=== PATIENT | male | born 1940 | race Caucasian/White ===

== ENCOUNTER 2017-01-12 10:19 | Emergency (ER) | payer MEDICARE, BC ==
[~2017-01-12] VITALS: Ht 182.9 cm; Wt 98.2 kg
[2017-01-12 10:22] VITALS: BP 152/82; PULSE 55; RESP 17; TEMP 97.6; O2SAT 99
[2017-01-12] MEDS ORDERED: DILT-60 PO (10:43)
[2017-01-12] MEDS ORDERED: GABA100C4 PO (10:43)
[2017-01-12] MEDS ORDERED: ALLO300T2 PO (10:43)
[2017-01-12] MEDS ORDERED: CLON0.3T PO (10:43)
[2017-01-12] MEDS ORDERED: PRAV80TA2 PO (10:43)
[2017-01-12] MEDS ORDERED: POTA4.25 PO (10:43)
[2017-01-12] MEDS ORDERED: TORS5TAB2 PO (10:43)
[2017-01-12] MEDS ORDERED: DOXA1TAB34 PO (10:43)
[2017-01-12] MEDS ORDERED: QUIN40TA2 PO (10:43)
[2017-01-12] MEDS ORDERED: METF500T PO (10:43)
[2017-01-12 10:51] VITALS: O2SAT 98
[2017-01-12] MEDS ORDERED: SODIUM CHLORIDE 0.9% FLUSH 10 ML FLUSH IVF PRN (11:00)
[2017-01-12 11:04] LABS: AUTOMATED NEUTROPHIL # 4.2 TH/MM3 (1.8-7.7); BASOPHIL % 0.5 % (0.0-2.0); EOSINOPHIL # 0.2 TH/MM3 (0-0.4); EOSINOPHIL % 3.3 % (0.0-4.0); HEMO FLAGS DIFF FINAL; LYMPH % 21.8 % (9.0-44.0); LYMPHOCYTE # 1.3 TH/MM3 (1.0-4.8); MEAN CELL VOLUME 88.6 FL (80.0-100.0); MEAN CORPUSCULAR HEMOGLOBIN 29.5 PG (27.0-34.0); MEAN CORPUSCULAR HGB CONC 33.3 % (32.0-36.0); NEUT % 70.4 % (16.0-70.0); PLATELET COUNT 174 TH/MM3 (150-450); RED BLOOD COUNT 4.97 MIL/MM3 (4.50-5.90); RED CELL DISTRIBUTION WIDTH 14.3 % (11.6-17.2); WHITE BLOOD COUNT 5.9 TH/MM3 (4.0-11.0)
--- NOTE | 2017-01-12 11:08 | PD ---
HPI Chief Complaint: Respiratory Symptoms Time Seen by Provider: 10:36 Travel History International Travel<30 days: No Contact w/Intl Traveler<30days: No Traveled to known affect area: No History of Present Illness HPI The patient is a 76-year-old male who presents emergency department for shortness of breath. The patient states he developed shortness of breath this started last night. The patient feels like he is having difficulty taking a deep breath, feels like he has some congestion in the sinuses. The patient denies any chest pain, states his shortness of breath feels like the inability to take a deep breath, denies any new cough, nausea, vomiting, or diaphoresis. The patient denies any known history congestive heart failure, COPD, or tobacco use. The patient denies any fever, chills, or sweats. The patient was evaluated at an urgent care and was referred to the emergency department for further evaluation. The patient is currently visiting [place] from [place], [place], and has a plane flight back tonight at 9 PM for a in the family. The patient denies any orthopnea, dyspnea with exertion, recent hospitalizations , but had a lithotripsy recently and flew from [place] to [place] recently. He does complain of bilateral lower extremity pitting edema which is worse since he has been in [place]. He denies any personal history of pulmonary embolism or DVT. PFSH Past Medical History High Cholesterol: Yes Diabetes: Yes Patient Takes Glucophage: Yes Gout: Yes Hypertension: Yes Influenza Vaccination: Yes ?: Not Social History Alcohol Use: No Tobacco Use: No Substance Use: No Allergies-Medications (Allergen,Severity, Reaction): Coded Allergies: No Known Allergies (Unverified , 01/12/17) Reported Meds & Prescriptions Reported Meds & Active Scripts Active Reported Diltiazem CD 24 HR 120 Mg Caper 120 Mg PO DAILY Gabapentin 100 Mg Cap 100 Mg PO HS Metformin (Metformin HCl) 500 Mg Tab 500 Mg PO HS With a meal Clonidine (Clonidine HCl) 0.3 Mg Tab 0.3 Mg PO BID Pravastatin 80 Mg Tab 80 Mg PO EVERY OTHER DAY Potassium Citrate ER 15 Meq Tab 50 Meq PO DAILY Doxazosin (Doxazosin Mesylate) 4 Mg Tab 4 Mg PO DAILY Quinapril (Quinapril HCl) 40 Mg Tab 40 Mg PO DAILY Allopurinol 300 Mg Tab 300 Mg PO DAILY Torsemide 5 Mg Tab 5 Mg PO DAILY Review of Systems Except as stated in HPI: all other systems reviewed are Neg General / Constitutional: No: Fever HENT: Positive: Congestion, No: Lightheadedness Cardiovascular: No: Chest Pain or Discomfort, Dyspnea on exertion Respiratory: Positive: Shortness of Breath, No: Cough Gastrointestinal: No: Nausea, Vomiting, Abdominal Pain Musculoskeletal: Positive: Edema Physical Exam Narrative GENERAL: Awake, alert, pleasant 76-year-old male who appears his stated age is in no acute respiratory distress. SKIN: Focused skin assessment warm/dry. Sunburn of the shoulders and upper back noted. HEAD: Atraumatic. Normocephalic. EYES: Pupils equal and round. No scleral icterus. No injection or drainage. ENT: No nasal bleeding or discharge. Patient has cobblestoning of posterior pharynx consistent with postnasal drainage. Turbinates are injected and inflamed bilaterally. NECK: Trachea midline. No JVD. CARDIOVASCULAR: Irregularly irregular, bradycardic with a rate in the 40s. RESPIRATORY: No accessory muscle use. Clear to auscultation. Breath sounds equal bilaterally. GASTROINTESTINAL: Abdomen soft, non-tender, nondistended. No rebound tenderness. MUSCULOSKELETAL: No obvious deformities. No clubbing. No cyanosis. Mild, bilateral lower extremity pitting edema with chronic venous stasis changes. NEUROLOGICAL: Awake and alert. No obvious cranial nerve deficits. Motor grossly within normal limits. Normal speech. PSYCHIATRIC: Appropriate mood and affect; insight and judgment normal. Data Data Last Documented VS Vital Signs Date Time Temp Pulse Resp B/P Pulse Ox O2 Delivery O2 Flow Rate FiO2 01/12/17 11:26 52 16 150/75 99 Room Air 01/12/17 10:22 97.6 Orders Complete Blood Count With Diff (01/12/17 10:48) Comprehensive Metabolic Panel (01/12/17 10:48) B-Type Natriuretic Peptide (01/12/17 10:48) Magnesium (Mg) (01/12/17 10:48) Ckmb (Isoenzyme) Profile (01/12/17 10:48) Troponin I (01/12/17 10:48) Iv Access Insert/Monitor (01/12/17 10:48) Electrocardiogram (01/12/17 10:48) Ecg Monitoring (01/12/17 10:48) Oximetry (01/12/17 10:48) Oxygen Administration (01/12/17 10:48) Chest, Single Ap (01/12/17 10:48) Sodium Chloride 0.9% Flush (Ns Flush) (01/12/17 11:00) Aspirin Chew (Aspirin Chew) (01/12/17 11:30) CKMB (01/12/17 11:00) CKMB% (01/12/17 11:00) Labs Laboratory Tests Test 01/12/17 11:00 White Blood Count 5.9 TH/MM3 Red Blood Count 4.97 MIL/MM3 Hemoglobin 14.6 GM/DL Hematocrit 44.0 % Mean Corpuscular Volume 88.6 FL Mean Corpuscular Hemoglobin 29.5 PG Mean Corpuscular Hemoglobin 33.3 % Concent Red Cell Distribution Width 14.3 % Platelet Count 174 TH/MM3 Mean Platelet Volume 9.3 FL Neutrophils (%) (Auto) 70.4 % Lymphocytes (%) (Auto) 21.8 % Monocytes (%) (Auto) 4.0 % Eosinophils (%) (Auto) 3.3 % Basophils (%) (Auto) 0.5 % Neutrophils # (Auto) 4.2 TH/MM3 Lymphocytes # (Auto) 1.3 TH/MM3 Monocytes # (Auto) 0.2 TH/MM3 Eosinophils # (Auto) 0.2 TH/MM3 Basophils # (Auto) 0.0 TH/MM3 CBC Comment DIFF FINAL Differential Comment Sodium Level 143 MEQ/L Potassium Level 4.1 MEQ/L Chloride Level 108 MEQ/L Carbon Dioxide Level 22.4 MEQ/L Anion Gap 13 MEQ/L Blood Urea Nitrogen 17 MG/DL Creatinine 1.20 MG/DL Estimat Glomerular Filtration 59 ML/MIN Rate Random Glucose 140 MG/DL Calcium Level 9.0 MG/DL Magnesium Level 2.3 MG/DL Total Bilirubin 0.7 MG/DL Aspartate Amino Transf 19 U/L (AST/SGOT) Alanine Aminotransferase 37 U/L (ALT/SGPT) Alkaline Phosphatase 75 U/L Total Creatine Kinase 160 U/L Troponin I LESS THAN 0.02 NG/ML B-Type Natriuretic Peptide 50 PG/ML Total Protein 7.3 GM/DL Albumin 3.8 GM/DL MDM Medical Decision Making Medical Screen Exam Complete: Yes Emergency Medical Condition: Yes Medical Record Reviewed: Yes Interpretation(s) EKG reveals Mobitz type 1 block. It appears the patient has P waves which progressively lengthen and then eventually drop, consistent with Mobitz type I Chest x-ray reveals no acute cardiopulmonary disease. Last Impressions Chest X-Ray 01/12/17 1048 Signed Impressions: Service Date/Time: Thursday, January 12, 2017 11:05 - CONCLUSION: No acute cardiopulmonary disease. Cookie Mejia MD Laboratory Tests Test 01/12/17 11:00 White Blood Count 5.9 TH/MM3 Red Blood Count 4.97 MIL/MM3 Hemoglobin 14.6 GM/DL Hematocrit 44.0 % Mean Corpuscular Volume 88.6 FL Mean Corpuscular Hemoglobin 29.5 PG Mean Corpuscular Hemoglobin 33.3 % Concent Red Cell Distribution Width 14.3 % Platelet Count 174 TH/MM3 Mean Platelet Volume 9.3 FL Neutrophils (%) (Auto) 70.4 % Lymphocytes (%) (Auto) 21.8 % Monocytes (%) (Auto) 4.0 % Eosinophils (%) (Auto) 3.3 % Basophils (%) (Auto) 0.5 % Neutrophils # (Auto) 4.2 TH/MM3 Lymphocytes # (Auto) 1.3 TH/MM3 Monocytes # (Auto) 0.2 TH/MM3 Eosinophils # (Auto) 0.2 TH/MM3 Basophils # (Auto) 0.0 TH/MM3 CBC Comment DIFF FINAL Differential Comment Sodium Level 143 MEQ/L Potassium Level 4.1 MEQ/L Chloride Level 108 MEQ/L Carbon Dioxide Level 22.4 MEQ/L Anion Gap 13 MEQ/L Blood Urea Nitrogen 17 MG/DL Creatinine 1.20 MG/DL Estimat Glomerular Filtration 59 ML/MIN Rate Random Glucose 140 MG/DL Calcium Level 9.0 MG/DL Magnesium Level 2.3 MG/DL Total Bilirubin 0.7 MG/DL Aspartate Amino Transf 19 U/L (AST/SGOT) Alanine Aminotransferase 37 U/L (ALT/SGPT) Alkaline Phosphatase 75 U/L Total Creatine Kinase 160 U/L Troponin I LESS THAN 0.02 NG/ML B-Type Natriuretic Peptide 50 PG/ML Total Protein 7.3 GM/DL Albumin 3.8 GM/DL Differential Diagnosis Differential diagnoses includes arrhythmia, ACS, sinusitis, pleural effusion, congestive heart failure, pneumonia, pulmonary embolism. Narrative Course IV was established, labs are drawn and sent, and the patient was placed on cardiac telemetry monitoring and continuous pulse oximetry monitoring. EKG was ordered and interpreted. Chest x-ray was obtained. The patient's EKG reveals a Mobitz type I block with a rate in the 30s, patient is on Cardizem. The patient will need the Cardizem held. We then had a long strip of the patient's cardiac rhythm produced, it appears he had lengthening CO intervals until there was a drop, however, had a few episodes where he just had a P wave with no QRS, may be a bland between Mobitz type I and Mobitz type II. The patient's electrolytes unremarkable. The patient's heart rate varied between the high 30s to mid 50s. I do discussion with the patient regarding admission with cardiac telemetry monitoring, holding diltiazem, and evaluation by cardiology. However, the patient states he had a in the family has a flight back to [place]. He would prefer to be discharged and follow-up with his primary physician. The patient's vitals are stable except for heart rate that is slightly bradycardic, however, his blood pressures maintaining with a systolic in the 150s and diastolic in the 70s. He is currently awake, coherent, without any altered mental status. The patient is advised to hold his diltiazem and will be provided a copy of his EKG, EKG strip, and labs at discharge. He is advised to return immediately if symptoms worsen or progress. Patient agrees and understands. Diagnosis Primary Impression: Bradycardia Additional Impression: Mobitz (type) I (Wenckebach's) atrioventricular block Patient Instructions: General Instructions Additional Instructions: Take a baby aspirin daily. Hold diltiazem. Follow-up with your primary physician when you return home. Please provide the patient a copy of his EKG, EKG strip, lab, and x-ray report at discharge. Return immediately if symptoms worsen or progress. Med/Other Pt SpecificInfo: Med Stopped (hold diltiazem) Disposition: 01 DISCHARGE HOME Condition: Stable Barry Hastings MD Jan 12, 2017 11:08
[2017-01-12 11:16] LABS: CHLORIDE 108 MEQ/L (98-107); POTASSIUM 4.1 MEQ/L (3.5-5.1); SODIUM (NA) 143 MEQ/L (136-145)
--- NOTE | 2017-01-12 11:17 | RADHPO ---
EXAM DATE/TIME: 01/12/2017 11:05 [facility] COMPARISON: No previous studies available for comparison. INDICATIONS : Short of breath MEDICAL HISTORY : Diabetes mellitus type II. SURGICAL HISTORY : None. ENCOUNTER: Initial ACUITY: 1 day PAIN SCORE: 0/10 LOCATION: Bilateral chest FINDINGS: The lungs are clear without infiltrate, nodule, or mass. There is no appreciable pleural effusion fo r technique. Heart and mediastinum are unremarkable. CONCLUSION: No acute cardiopulmonary disease. Cookie Mejia MD on January 12, 2017 at 11:15 Board Certified Radiologist. This report was verified electronically.
[2017-01-12 11:20] LABS: ANION GAP 13 MEQ/L (5-15); BICARBONATE 22.4 MEQ/L (21.0-32.0); BLOOD UREA NITROGEN 17 MG/DL (7-18); MAGNESIUM 2.3 MG/DL (1.5-2.5)
[2017-01-12 11:23] LABS: ALT (GPT) 37 U/L (12-78); AST (GOT) 19 U/L (15-37); GLOMERULAR FILTRATION RATE 59 ML/MIN (>89)
[2017-01-12 11:24] LABS: TOTAL BILIRUBIN ADULT 0.7 MG/DL (0.2-1.0)
[2017-01-12 11:26] VITALS: BP 150/75; PULSE 52; RESP 16; O2SAT 99
[2017-01-12 11:26] LABS: ALKALINE PHOSPHATASE 75 U/L (45-117); CREATINE KINASE 160 U/L (39-308)
[2017-01-12] MEDS ORDERED: ASPIRIN 81 MG CHEW TAB CHEW ONE (11:30)
[2017-01-12 11:38] LABS: CKMB 3.2 NG/ML (0.5-3.6)
--- NOTE | 2017-01-13 14:09 | EKG ---
Date Performed: 01/12/2017 Time Performed: 10:51:46 PTAGE: 76 years EK:2 and 4:3 AV Wenckebach present with overall heart rate of 38 bpm Mild interventricular c onduction disturbance NO PREVIOUS TRACING for comparison Clinical correlation and follow-up tracings are recomm ended. Abnormal ECG NO PREVIOUS TRACING DOCTOR: Joon Leger Interpretating Date/Time 01/13/2017 14:07:44
== END 2017-01-12 12:06 | disposition home or self-care (01) ==
LOC: PHED 10:19
DX: R00.1 Bradycardia, unspecified (principal); I44.1 Atrioventricular block, second degree; R09.81 Nasal congestion; R60.0 Localized edema; E78.00 Pure hypercholesterolemia, unspecified; E11.9 Type 2 diabetes mellitus without complications; M10.9 Gout, unspecified; I10 Essential (primary) hypertension; Z79.84 Long term (current) use of oral hypoglycemic drugs
CPT/HCPCS: 71010; 80053; 82550; 82552; 83735; 83880; 84484; 85025; 93005